=== PATIENT | male | born 1950 | race African-American/Black ===

== ENCOUNTER 2017-10-09 15:50 | Inpatient (IN) ==
[2017-10-09] MEDS ORDERED: SALINE FLUSH 10ml SYRINGE IVF PRN (16:18)
--- NOTE | 2017-10-09 16:22 | Emergency Department Report ---
SOB HPI - General Chief Complaint: Shortness of Breath/Dyspnea Stated Complaint: congestion,difficulty breathing Time Seen by Provider: 10/09/17 16:22 Source: patient Mode of arrival: ambulatory Limitations: no limitations - History of Present Illness Patient presents to the ED with complaints of dyspnea and cough for almost 3 weeks. He has seen his PCP, Dr Perez twice and is on his second round of antibiotics; states was on first antibiotic for only a few days and didn't think it was helping so he saw him again on 10/06 and started augmentin. States he does not believe he has had any xrays. Patient has significant PMH of CAD, HTN, COPD, CHF, NIIDM and cancer including hx of CABG x5 in 2007. P Patient takes plavix 75 mg daily. Reports also flew to [facility] about 3 weeks ago about the same time the sx started. Patient has had a left BKA in 2007 after his leg got infected after his bypass surgery Upon arrival,patient has very decreased lung sounds bilaterally. Room air sats are 88-92%. Denies specific chest pain unless he is coughing; Denies hemoptysis. D dimer obtained and is elevated at 522. CT scan done indicating bilateral LL infiltrates, with right pleural effusion and a right lower lobe focal PE. Patient also has sleep apnea and uses bipap at night. His PCP is Dr Perez and groutman is Dr Lindsey in [place]; Last stress thallium was in April and patient was told to follow up in 6 months. - Related Data Home Medications Medication Instructions Recorded Confirmed Digoxin 125 mcg PO DAILY #0 10/09/08 10/09/17 Colchicine 0.6 mg PO DAILY #0 01/27/16 10/09/17 Rosuvastatin Calcium 40 mg PO HS #0 01/27/16 10/09/17 Albuterol HFA Inhaler [Ventolin 1 puff INH PRN 10/09/17 10/09/17 Hfa 90 mcg/actuation] Amox/Clav [Augmentin 875/125] 1 tab PO BID 10/09/17 10/09/17 Baclofen [Lioresal] 10 mg PO HS PRN 10/09/17 10/09/17 Clopidogrel Bisulfate [Clopidogrel] 75 mg PO DAILY 10/09/17 10/09/17 Furosemide [Lasix] 40 mg PO WL 10/09/17 10/09/17 Furosemide [Lasix] 60 mg PO WB 10/09/17 10/09/17 Gabapentin [Neurontin] 400 mg PO TID 10/09/17 10/09/17 GlipiZIDE [Glucotrol] 5 mg PO BID 10/09/17 10/09/17 Latanoprost 1 drop OP HS 10/09/17 10/09/17 Metformin [Glucophage] 1,000 mg PO 1900 10/09/17 10/09/17 Metformin [Glucophage] 1,500 mg PO WB 10/09/17 10/09/17 Timolol [Betimol] 1 drop OP HS 10/09/17 10/09/17 Umeclidinium Brm/Vilanterol Tr 1 each IH DAILY 10/09/17 10/09/17 [Anoro Ellipta 62.5-25 Mcg INH] Allergies Allergy/AdvReac Type Severity Reaction Status Date / Time allopurinol Allergy Unknown Verified 10/09/17 16:16 hydrocodone Allergy Unknown Verified 10/09/17 16:16 ibuprofen Allergy Unknown Verified 10/09/17 16:16 atorvastatin calcium Allergy Severe MARKED Uncoded 08/07/12 16:07 INCREASE IN MUSCLE ENZYMES fexofenadine HCl Allergy Unknown Uncoded 08/07/12 16:07 Course - Consultations Consultation #1: Dr Urbina Time: 19:03 (will admit ) Vital Signs Temperature 98.2 F 10/09/17 16:00 Pulse Rate 105 H 10/09/17 16:00 Respiratory Rate 26 H 10/09/17 16:00 Blood Pressure 169/77 H 10/09/17 16:00 Pulse Oximetry 91 10/09/17 16:00 Temperature 98.2 F 10/09/17 16:00 Pulse Rate 105 H 10/09/17 16:00 Respiratory Rate 26 H 10/09/17 16:00 Blood Pressure 169/77 H 10/09/17 16:00 Pulse Oximetry 91 10/09/17 16:00 Shortness of Breath/Dyspnea - Lab Data Result diagrams: 10/09/17 16:29 10/09/17 16:29 Disposition Clinical Impression: Pulmonary embolism Qualifiers: Pulmonary embolism type: other Chronicity: acute Acute cor pulmonale presence: without acute cor pulmonale Qualified Code(s): I26.99 - Other pulmonary embolism without acute cor pulmonale Pneumonia Qualifiers: Pneumonia type: due to unspecified organism Laterality: bilateral Lung location : lower lobe of lung Qualified Code(s): J18.1 - Lobar pneumonia, unspecified organism Disposition: 02 [place] [facility] Condition: Stable Prescriptions: No Action Timolol [Betimol] 1 drop OP HS GlipiZIDE [Glucotrol] 5 mg PO BID Umeclidinium Brm/Vilanterol Tr [Anoro Ellipta 62.5-25 Mcg INH] 1 each IH DAILY Baclofen [Lioresal] 10 mg PO HS PRN PRN Reason: Muscle Spasm Amox/Clav [Augmentin 875/125] 1 tab PO BID Albuterol HFA Inhaler [Ventolin Hfa 90 mcg/actuation] 1 puff INH PRN Clopidogrel Bisulfate [Clopidogrel] 75 mg PO DAILY Furosemide [Lasix] 40 mg PO WL Metformin [Glucophage] 1,000 mg PO 1900 Latanoprost 1 drop OP HS Metformin [Glucophage] 1,500 mg PO WB Furosemide [Lasix] 60 mg PO WB Digoxin 125 mcg PO DAILY #0 Colchicine 0.6 mg PO DAILY #0 Rosuvastatin Calcium 40 mg PO HS #0 Gabapentin [Neurontin] 400 mg PO TID Referrals: Sharmila Perez MD [Primary Care Provider] - - Seen By: midlevel
[2017-10-09] MEDS ORDERED: ALBUTEROL/IPRATROPIUM 2.5mg-0.5mg/3ml NEB AEROSOL ONE (17:14)
[2017-10-09] MEDS ORDERED: NS 1,000 ML IV ONE (17:29)
[2017-10-09] MEDS ORDERED: SALINE FLUSH 10ml SYRINGE ONE (17:39)
[2017-10-09] MEDS ORDERED: IOHEXOL 350mg/ml 75ml INJECTION ONE (17:39)
[2017-10-09] MEDS ORDERED: ONDANSETRON 4 MG/2 ML INJECTION IVP PRN (19:21)
[2017-10-09] MEDS ORDERED: SENNA + DOCUSATE TABLET PO PRN (19:21)
[2017-10-09] MEDS ORDERED: MORPHINE SULFATE 2mg INJECTION IVP PRN (19:21)
[2017-10-09] MEDS ORDERED: HYDROCODONE/APAP 5mg/325mg TABLET PO PRN (19:21)
[2017-10-09] MEDS ORDERED: ACETAMINOPHEN 325 MG TABLET PO PRN (19:21)
[2017-10-09] MEDS: LEVOFLOXACIN PB 750 MG/150 ML BAG IV SCH (19:21)
[2017-10-09 20:39] VITALS: BMI 35.6
[2017-10-09] MEDS ORDERED: LEVOFLOXACIN PB 750 MG/150 ML BAG IV SCH (20:44)
[2017-10-09] MEDS ORDERED: ROSUVASTATIN CALCIUM 40 MG PO SCH (21:00)
--- NOTE | 2017-10-09 22:07 | History & Physical Report ---
History of Present Illness Date: 10/09/17 Chief complaint: SOB HPI: The pt started developing SOB , cough, chills, fevers, SAVAGE, body aches about 3 weeks ago after coming home from an [place] [facility] to [facility] with 50 other vets older than him. He went to his PCP and was started on an abx , didn' t feel better and changed abx after 2 days. He developed what he describes as coughing up white frothy sputum about a week ago. He has had increasing dyspnea but no hemotpysis. Review of Systems - Constitutional Constitutional: Present: chills, daytime sleepiness, fatigue, headache(s), weakness - Cardiovascular Cardiovascular: Present: edema. Absent: chest pain, orthopnea Vascular: Present: pedal edema - Respiratory Respiratory: Present: cough, dyspnea, dyspnea on exertion, chest congestion. Absent: hemoptysis - Gastrointestinal Gastrointestinal: Absent: diarrhea, dyspepsia, early satiety, hematemesis Past Medical History Medical History Updates: CABG 2007 5 vessel,. HTN, COPD, DM, Family History: No Significant Family History - Social History Smoking status: Heavy tobacco smoker Alcohol intake frequency: does not drink Medications Home Medications Medication Instructions Recorded Confirmed Type Digoxin 125 mcg PO DAILY #0 10/09/08 10/09/17 History Colchicine 0.6 mg PO DAILY #0 01/27/16 10/09/17 History Rosuvastatin Calcium 40 mg PO HS #0 01/27/16 10/09/17 History Albuterol HFA Inhaler [Ventolin 1 puff INH PRN 10/09/17 10/09/17 History Hfa 90 mcg/actuation] Amox/Clav [Augmentin 875/125] 1 tab PO BID 10/09/17 10/09/17 History Baclofen [Lioresal] 10 mg PO HS PRN 10/09/17 10/09/17 History Clopidogrel Bisulfate [Clopidogrel] 75 mg PO DAILY 10/09/17 10/09/17 History Furosemide [Lasix] 40 mg PO WL 10/09/17 10/09/17 History Furosemide [Lasix] 60 mg PO WB 10/09/17 10/09/17 History Gabapentin [Neurontin] 400 mg PO TID 10/09/17 10/09/17 History GlipiZIDE [Glucotrol] 5 mg PO BID 10/09/17 10/09/17 History Latanoprost 1 drop OP HS 10/09/17 10/09/17 History Metformin [Glucophage] 1,000 mg PO 1900 10/09/17 10/09/17 History Metformin [Glucophage] 1,500 mg PO WB 10/09/17 10/09/17 History Timolol [Betimol] 1 drop OP HS 10/09/17 10/09/17 History Umeclidinium Brm/Vilanterol Tr 1 each IH DAILY 10/09/17 10/09/17 History [Anoro Ellipta 62.5-25 Mcg INH] Allergies Allergy/AdvReac Type Severity Reaction Status Date / Time allopurinol Allergy Unknown Verified 10/09/17 16:16 hydrocodone Allergy Unknown Verified 10/09/17 16:16 ibuprofen Allergy Unknown Verified 10/09/17 16:16 atorvastatin calcium Allergy Severe MARKED Uncoded 08/07/12 16:07 INCREASE IN MUSCLE ENZYMES fexofenadine HCl Allergy Unknown Uncoded 08/07/12 16:07 Exam Vital Signs: Temperature 99.3 F 10/09/17 20:17 Pulse Rate 102 H 10/09/17 21:33 Respiratory Rate 20 10/09/17 21:33 Blood Pressure 160/95 H 10/09/17 20:17 Pulse Oximetry 96 10/09/17 21:33 Height/Weight/BMI: Height 1.78 m Weight 112.8 kg Body Mass Index 35.6 - Constitutional Present: no acute distress - Routine HEENT Exam Head: Present: normocephalic - Routine Neck Exam Present: supple - Routine Respiratory Exam Present: rales, rhonchi. Absent: accessory muscle use, respiratory distress - Routine Cardiovascular Exam Present: RRR, murmur - Routine Abdominal Exam Present: soft, normoactive bowel sounds, non distended, non tender - Routine Extremities Exam Comments: mild edema in RLE, AKA in left leg - Routine Skin Exam Present: intact - Routine Neurological Exam Present: alert, oriented X3 Results - Labs CBC & Chem 7: 10/09/17 16:29 10/09/17 16:29 Assessment and Plan (1) COPD (chronic obstructive pulmonary disease) Current visit: Yes Status: Acute (2) Pleural effusion associated with pulmonary infection Current visit: Yes Status: Acute (3) CAD (coronary artery disease) of artery bypass graft Current visit: Yes Status: Acute (4) Pneumonia Current visit: Yes Status: Acute (5) Pulmonary embolism Current visit: Yes Status: Acute Assessment and Plan: will start the pt on lovenox 1 mg/ kg BID, monitor on telemertry, empiric abx, repeat labs in am,restart home meds. supplemental oxygen. - Physician Narrative Narrative: Date: 10/09/17 Time: 2203 Hospital Course Summary Disclaimer: The visit summary below is not to be considered part of the above Progress Note.
[2017-10-09] MEDS: ENOXAPARIN 120 MG/0.8 ML INJECTION SQ SCH (22:30)
[2017-10-09] MEDS: ROSUVASTATIN 20 MG TABLET PO SCH (22:32)
[2017-10-09] MEDS: GABAPENTIN 400 MG CAPSULE PO SCH (22:32)
[2017-10-10] MEDS ORDERED: ALBUTEROL 2.5mg/3ml (0.083%) NEB AEROSOL PRN (06:12)
[2017-10-10] MEDS ORDERED: COLCHICINE 0.6 MG TABLET PO SCH (09:00)
[2017-10-10] MEDS ORDERED: CLOPIDOGREL 75 MG TABLET PO SCH (09:00)
[2017-10-10] MEDS: ENOXAPARIN 120 MG/0.8 ML INJECTION SQ SCH (09:35)
[2017-10-10] MEDS: DIGOXIN 125 MCG TABLET PO SCH (09:35)
[2017-10-10] MEDS: FUROSEMIDE 40 MG TABLET PO SCH ×2 (09:35→11:54)
[2017-10-10] MEDS: GABAPENTIN 400 MG CAPSULE PO SCH ×3 (09:35→20:07)
[2017-10-10] MEDS ORDERED: BACLOFEN 10 MG TABLET PO PRN (13:05)
[2017-10-10] MEDS ORDERED: INSULIN ASPART 100unit/ml INJECTION SQ PRN (13:06)
--- NOTE | 2017-10-10 15:25 | History & Physical Report ---
History of Present Illness Date: 10/10/17 Chief complaint: dyspnea HPI: Mr. Romano is a 67-year-old male with multiple chronic medical problems including COPD. He flew to [facility] approximate 3 weeks ago on an [place] [facility] and shortly after return home developed dyspnea with cough, fever, chills , myalgias, and headache. He was treated with an oral antibiotic which he discontinued after several days because he didn't feel it was improving symptoms. He saw Dr. Perez again about a week ago and was converted to Augmentin started on 10/06. Symptoms were stable for 2 days but he reports that the evening of 10/08 "the bottom fell out of everything". Reports significant worsening in dyspnea with marked exertional dyspnea, pain with breathing, persistent cough productive of frothy sputum but no recurrent fever or chills. He denies swelling in his right leg or pain in his leg or thighs. He denies hemoptysis. He was referred to the emergency room by Pranay SPENCER. He was mildly hypoxic in the emergency room requiring initiation of one to 2 L supplemental oxygen. D-dimer was modestly elevated and CTA of the chest revealed right lower lobe PE and bilateral lower lobe infiltrates which may be compressive atelectasis. Levaquin was initiated in conjunction with therapeutic Lovenox and he was admitted for management. Overnight he had 2 episodes of wide complex tachycardia identified on telemetry consistent with NSVT. Patient denies chest pain or palpitations. Review of Systems All systems PM: 10-point ROS was reviewed, no additional remarkable complaints except (as noted in history of present illness, right shoulder pain due to rotator cuff injury; he denies history of blood loss.) Past Medical History Medical History: Medical History (Last Updated 10/10/17 @ 15:28 by Yoly Roberson MD) Bladder cancer Treated with intravesicular chemotherapy CAD (coronary artery disease) COPD (chronic obstructive pulmonary disease) Glaucoma HTN (hypertension) History of left below knee amputation 2008; postoperative infection left leg after CABG Hyperlipemia RONDA (obstructive sleep apnea) PVD (peripheral vascular disease) Bilateral lower extremity bypasses Surgical History: CABG 2007 5 vessel-February 2008, left BKA due to post CABG leg infection-June 2008, arterial bypasses bilateral lower extremities, cystoscopies with intravesicular chemotherapy for bladder cancer Family History: Family History (Last Updated 10/10/17 @ 15:17 by Yoly Roberson MD) Sister Cervical cancer Mother Coronary artery disease Diabetes Family History: As Above - Social History Smoking status: Former smoker (heavy use in the past; discontinued 15 years ago) Substance use type: does not use Alcohol intake frequency: does not drink Current residence: Apartment/Private Home Social history: PCP-Dr. Leroy Perez Cardiology-Dr. Lida Lindsey Alternate [id number] would like his son to be his DPOA but has not actually completed paperwork. CODE STATUS full Medications Home Medications Medication Instructions Recorded Confirmed Type Digoxin 125 mcg PO DAILY #0 10/09/08 10/09/17 History Colchicine 0.6 mg PO DAILY #0 01/27/16 10/09/17 History Rosuvastatin Calcium 40 mg PO HS #0 01/27/16 10/09/17 History Albuterol HFA Inhaler [Ventolin 1 puff INH PRN 10/09/17 10/09/17 History Hfa 90 mcg/actuation] Amox/Clav [Augmentin 875/125] 1 tab PO BID 10/09/17 10/09/17 History Baclofen [Lioresal] 10 mg PO HS PRN 10/09/17 10/09/17 History Clopidogrel Bisulfate [Clopidogrel] 75 mg PO DAILY 10/09/17 10/09/17 History Furosemide [Lasix] 40 mg PO WL 10/09/17 10/09/17 History Furosemide [Lasix] 60 mg PO WB 10/09/17 10/09/17 History Gabapentin [Neurontin] 400 mg PO TID 10/09/17 10/09/17 History GlipiZIDE [Glucotrol] 5 mg PO BID 10/09/17 10/09/17 History Latanoprost 1 drop OP HS 10/09/17 10/09/17 History Metformin [Glucophage] 1,000 mg PO 1900 10/09/17 10/09/17 History Metformin [Glucophage] 1,500 mg PO WB 10/09/17 10/09/17 History Timolol [Betimol] 1 drop OP HS 10/09/17 10/09/17 History Umeclidinium Brm/Vilanterol Tr 1 each IH DAILY 10/09/17 10/09/17 History [Anoro Ellipta 62.5-25 Mcg INH] Allergies Allergy/AdvReac Type Severity Reaction Status Date / Time allopurinol Allergy Unknown Verified 10/09/17 16:16 hydrocodone Allergy Unknown Verified 10/09/17 16:16 ibuprofen Allergy Unknown Verified 10/09/17 16:16 atorvastatin calcium Allergy Severe MARKED Uncoded 08/07/12 16:07 INCREASE IN MUSCLE ENZYMES fexofenadine HCl Allergy Unknown Uncoded 08/07/12 16:07 Exam Vital Signs: Temperature 98.2 F 10/10/17 11:21 Pulse Rate 100 10/10/17 11:21 Respiratory Rate 16 10/10/17 11:21 Blood Pressure 140/81 H 10/10/17 11:21 Pulse Oximetry 95 - 2L 10/10/17 11:21 EXAM: General-NAD, alert, fluent speech HEENT-PERRL, EOMI without nystagmus, conjugate gaze, conjunctiva clear, sclera anicteric, facial structures symmetric, oropharynx clear, neck supple and without adenopathy Lungs-respirations nonlabored, good airflow, faint inspiratory/expiratory crackles right upper anterior field; no extra sounds at the bases posteriorly Cardiac-regular rhythm, S1-S2 Abd-obese, soft, nontender, bowel sounds present although diminished Ext-right lower extremity without edema; left AKA-prosthesis on Skin-no generalized rashes, no visualized wounds Neuro-cranial nerves 3-12 intact, sensation intact to light touch 4 extremities and sensation present right foot; normal motor tone/power Psych-calm, cooperative, pleasant Telemetry Rhythm: Sinus Rhythm (with short runs of wide complex tachycardia consistent with NSVT) Height/Weight/BMI: Height 1.78 m Weight 107.8 kg Body Mass Index 35.6 Results - Labs CBC & Chem 7: 10/10/17 04:08 10/10/17 04:08 Labs: D-dimer 522 A1C 6.4 CRP 154 Lactic acid 1.0-0.7, procalcitonin nondetectable Magnesium 2.2 - ECG Data Tracing #1 I reviewed this ECG and interpreted as documented below: (sinus tachycardia with rate partially 138, no acute changes, probable old inferior DC and possible old anterior DC) - Imaging and Cardiology CT scan - chest Status: image reviewed by me (small right pleural effusion, bibasilar infiltrates/atelectasis, right lower PE; possible gallstone) Assessment and Plan (1) Pulmonary embolism Current visit: Yes Status: Acute (2) Pneumonia Current visit: Yes Status: Acute Assessment and Plan: Impression: Pulmonary embolism Pneumonia Hypoxia Pleural effusion Coronary artery disease Wide-complex tachycardia Peripheral vascular disease COPD Diabetes mellitus-A1c 6.4 Hyperlipidemia s/p L-BKA RONDA Plan: Lovenox initiated overnight for pulmonary embolism. Options for oral anticoagulates discussed with patient and he would prefer NOAC provided insurance coverage is available. Clarifying coverage with his pharmacy but anticipate converting to Xarelto or Eliquis. Optimally will obtain echocardiogram to evaluate PA pressures and reassess LV function given wide-complex tachycardia. Unable to obtain study until 10/12. Add low-dose beta renny for NSVT; continue telemetry. Continue Levaquin. Titrate oxygen as status permits. Resume metformin for diabetes; monitor blood sugars fasting and 2 hours after meals. RT consultation. DVT Prophylaxis: Lovenox Resuscitation Status: Full Code - Physician Narrative Narrative: Date: 10/10/17 Time: 1518 Hospital Course Summary Disclaimer: The visit summary below is not to be considered part of the above Progress Note. Hospital Course: 10/10/17 Admitted overnight with increasing dyspnea/exertional dyspnea after 3 week history respiratory symptoms failing outpatient antibiotics. CTA demonstrated pulmonary emboli the right lower lung in addition to bilateral infiltrates. Telemetry overnight with runs of NSVT. Lovenox initiated overnight for pulmonary embolism. Options for oral anticoagulates discussed with patient and he would prefer NOAC provided insurance coverage is available. Clarifying coverage with his pharmacy but anticipate converting to Xarelto or Eliquis. Optimally will obtain echocardiogram to evaluate PA pressures and reassess LV function given wide-complex tachycardia. Unable to obtain study until 10/12. Add low-dose beta renny for NSVT; continue telemetry. Continue Levaquin. Titrate oxygen as status permits. Resume metformin for diabetes; monitor blood sugars fasting and 2 hours after meals. RT consultation.
[2017-10-10] MEDS: CARVEDILOL 3.125 MG TABLET PO SCH (18:31)
[2017-10-10] MEDS: RIVAROXABAN 15 MG TABLET PO SCH (18:31)
[2017-10-10] MEDS: ALBUTEROL/IPRATROPIUM 2.5mg-0.5mg/3ml NEB AEROSOL SCH (19:18)
[2017-10-10] MEDS: COLCHICINE 0.6 MG TABLET PO SCH (20:07)
[2017-10-10] MEDS: METFORMIN 500 MG TABLET PO SCH (20:07)
[2017-10-10] MEDS: ROSUVASTATIN 20 MG TABLET PO SCH (20:07)
[2017-10-10] MEDS: LATANOPROST 0.005% EYE DROPS 2.5ml OP SCH (20:08)
[2017-10-10] MEDS: CLOPIDOGREL 75 MG TABLET PO SCH (20:08)
[2017-10-10] MEDS: LEVOFLOXACIN PB 750 MG/150 ML BAG IV SCH (20:08)
[2017-10-10] MEDS ORDERED: ROSUVASTATIN 20 MG TABLET PO SCH (21:00)
[2017-10-11] MEDS: ALBUTEROL/IPRATROPIUM 2.5mg-0.5mg/3ml NEB AEROSOL SCH ×4 (06:39→19:33)
[2017-10-11] MEDS: RIVAROXABAN 15 MG TABLET PO SCH ×2 (09:02→18:09)
[2017-10-11] MEDS: CARVEDILOL 3.125 MG TABLET PO SCH ×2 (09:02→18:09)
[2017-10-11] MEDS: GABAPENTIN 400 MG CAPSULE PO SCH ×3 (09:02→20:04)
[2017-10-11] MEDS: DIGOXIN 125 MCG TABLET PO SCH (09:02)
[2017-10-11] MEDS: METFORMIN 500 MG TABLET PO SCH ×2 (09:02→18:09)
[2017-10-11] MEDS: FUROSEMIDE 40 MG TABLET PO SCH ×2 (09:02→11:50)
--- NOTE | 2017-10-11 11:15 | CT Scan Report ---
Indication: DYSPNEA, ELEVATED D DIMER PROCEDURE: CT angio pulm emboli: Encounter: Initial Comparison: CTA chest dated March 27, 2008 Technique: Axial CT pulmonary angiographic phase images were performed through the chest after the administration of intravenous contrast. Coronal and Sagittal MIP reconstructed images were created and reviewed. Automated Exposure Control and Iterative Reconstruction dose reducing techniques were utilized. Contrast: Omnipaque 350 73 mL Findings: Pulmonary arteries: Exam is diagnostic to the subsegmental pulmonary arterial level. Questionable filling defect in a right lower lobe branch mentioned on the preliminary report. There is motion artifact limiting evaluation of this region. Other findings: Small right effusion. Bilateral lower lobe airspace consolidation with linear atelectasis in the right middle lobe. Subpleural 8 mm lingular nodule on image #32. Additional 4 to 5 mm left lower lobe nodule on image #41. Intrapulmonary lymph node along the right major fissure. Subpleural right middle lobe 5 mm nodule on image #26. These nodules appear stable since 2007 consistent with a benign postinfectious or postinflammatory etiology. No axillary or mediastinal adenopathy. Heart is mildly enlarged. No pericardial effusion. Prior CABG. The upper abdomen shows no acute findings. Impression: Possible right lower lobe pulmonary embolus. Basilar atelectasis, pneumonia or aspiration. There is a preliminary report by [employer]. .
--- NOTE | 2017-10-11 14:38 | Progress Note ---
- Date 10/11/17 Subjective: Mr. Romano reports that he is less dyspneic than in recent days and reports minimal cough. Cough is productive of clear sputum which had a zofia of blood in it on one occasion but he otherwise denies bleeding. He denied chest pain or palpitations; has had no nausea, vomiting, fever, or chills. He denies lightheadedness and reports his appetite is good. Objective Vital signs: Temperature 98.2 F 10/11/17 11:23 Pulse Rate 96 10/11/17 11:23 Respiratory Rate 18 10/11/17 11:23 Blood Pressure 121/68 10/11/17 11:23 Pulse Oximetry 92-0.5 L 10/11/17 11:23 NAD, alert, fluent speech Conjunctiva clear, sclera anicteric, conjugate gaze Respirations nonlabored, good airflow, breath sounds clear Regular rhythm, S1-S2, low-grade tachycardia Abdomen soft, obese, nontender, bowel sounds present Right extremity without edema, calf nontender; left BKA Rhythm: Normal Sinus Rhythm, Sinus Tachycardia (occasional PVCs) Height/Weight/BMI: Height 1.78 m Weight 107.2 kg Body Mass Index 35.6 Results - Labs CBC & Chem 7: 10/11/17 04:40 10/11/17 04:40 Labs: Troponin 0.015 Magnesium 2.2 Assessment and Plan (1) Pulmonary embolism Current visit: Yes Status: Acute (2) Pneumonia Current visit: Yes Status: Acute Assessment and Plan: Impression: Pulmonary embolism Pneumonia Hypoxia Pleural effusion Coronary artery disease Wide-complex tachycardia/NSVT Peripheral vascular disease COPD Diabetes mellitus-A1c 6.4 Hyperlipidemia s/p L-BKA RONDA Plan: Converted from Lovenox to Xarelto yesterday after it was learned that his insurance covers Xarelto adequately. Respiratory symptoms improving but continues to require oxygen and have low- grade tachycardia. Echocardiogram tomorrow, if Dr. Lindsey is available will ask that he read echo and review telemetry strip with nonsustained VT. In reviewing telemetry strips from yesterday there was only one episode of NSVT although 2 copies appear in the chart. 14 beats of monomorphic VT at rate of approximately 150. No recurrence last night. Low-dose carvedilol initiated yesterday Continue Levaquin for possible pneumonia-no fever/leukocytosis. Day 3 Levaquin of planned 5. Blood sugars adequately controlled on metformin. On Duo-neb 4 times a day in place of Anoro while hospitalized. DVT Prophylaxis: Xarelto Resuscitation Status: Full Code - Physician Narrative Narrative: Date: 10/11/17 Time: 1435 Hospital Course Summary Disclaimer: The visit summary below is not to be considered part of the above Progress Note. Hospital Course: 10/10/17 Admitted overnight with increasing dyspnea/exertional dyspnea after 3 week history respiratory symptoms failing outpatient antibiotics. CTA demonstrated pulmonary emboli the right lower lung in addition to bilateral infiltrates. Telemetry overnight with a run of NSVT. Lovenox initiated overnight for pulmonary embolism. Options for oral anticoagulates discussed with patient and he would prefer NOAC provided insurance coverage is available. Clarifying coverage with his pharmacy but anticipate converting to Xarelto or Eliquis. Optimally will obtain echocardiogram to evaluate PA pressures and reassess LV function given wide-complex tachycardia. Unable to obtain study until 10/12. Add low-dose beta renny for NSVT; continue telemetry. Continue Levaquin. Titrate oxygen as status permits. Resume metformin for diabetes; monitor blood sugars fasting and 2 hours after meals. RT consultation. 10/11/17 Converted from Lovenox to Xarelto yesterday after it was learned that his insurance covers Xarelto adequately. Respiratory symptoms improving but continues to require oxygen and have low- grade tachycardia. Echocardiogram tomorrow, if Dr. Lindsey is available will ask that he read echo and review telemetry strip with nonsustained VT. In reviewing telemetry strips there was only one episode of NSVT although 2 copies appear in the chart. 14 beats of monomorphic VT at rate of approximately 150. No recurrence last night. Low-dose carvedilol initiated yesterday Continue Levaquin for possible pneumonia-no fever/leukocytosis. Day 3 Levaquin of planned 5. Blood sugars adequately controlled on metformin. On Duo-neb 4 times a day in place of Anoro while hospitalized.
[2017-10-11] MEDS: TIMOLOL 0.5% EYE DROPS 5 ML EACH EYE SCH ×2 (15:37→20:21)
[2017-10-11] MEDS: LATANOPROST 0.005% EYE DROPS 2.5ml OP SCH (20:03)
[2017-10-11] MEDS: LEVOFLOXACIN PB 750 MG/150 ML BAG IV SCH (20:03)
[2017-10-11] MEDS: CLOPIDOGREL 75 MG TABLET PO SCH (20:04)
[2017-10-11] MEDS: ROSUVASTATIN 20 MG TABLET PO SCH (20:04)
[2017-10-11] MEDS: COLCHICINE 0.6 MG TABLET PO SCH (20:04)
[2017-10-12] MEDS: ALBUTEROL/IPRATROPIUM 2.5mg-0.5mg/3ml NEB AEROSOL SCH ×3 (07:33→15:50)
[2017-10-12] MEDS: GABAPENTIN 400 MG CAPSULE PO SCH ×2 (08:50→14:28)
[2017-10-12] MEDS: RIVAROXABAN 15 MG TABLET PO SCH ×2 (08:50→17:58)
[2017-10-12] MEDS: DIGOXIN 125 MCG TABLET PO SCH (08:50)
[2017-10-12] MEDS: METFORMIN 500 MG TABLET PO SCH ×2 (08:50→18:48)
[2017-10-12] MEDS: FUROSEMIDE 40 MG TABLET PO SCH ×2 (08:51→11:41)
[2017-10-12] MEDS: CARVEDILOL 3.125 MG TABLET PO SCH ×2 (08:51→17:58)
[2017-10-12] MEDS: TIMOLOL 0.5% EYE DROPS 5 ML EACH EYE SCH (09:39)
--- NOTE | 2017-10-12 14:51 | Progress Note ---
- Date 10/12/17 Subjective: Mohsen reports he's feeling well. He denies SOA or exertional SOA. No chest pain or dizziness. He denied having any sx with NSVT. He denies abdominal pain or GI complaints. He is hopeful for discharge home. Objective Vital signs: Temperature 97.8 F 10/12/17 11:53 Pulse Rate 91 10/12/17 11:53 Respiratory Rate 18 10/12/17 11:53 Blood Pressure 148/72 H 10/12/17 11:53 Pulse Oximetry 94 10/12/17 11:53 Rhythm: Normal Sinus Rhythm, Sinus Tachycardia (occasional PVCs) Height/Weight/BMI: Height 1.78 m Weight 106.5 kg Body Mass Index 35.6 - Constitutional Present: no acute distress, well nourished, well developed - Routine HEENT Exam Head: Present: normocephalic Eye: Absent: conjunctival icterus, scleral injection ENT: Present: mucous membranes moist, oropharynx clear - Routine Respiratory Exam Present: CTA bilaterally, wheezes (only noted with cough) - Routine Cardiovascular Exam Present: RRR, S1, S2 - Routine Abdominal Exam Present: soft, normoactive bowel sounds, non distended, non tender - Routine Extremities Exam Present: edema (trace RLE) Comments: Left BKA prosthetic in place - Routine Skin Exam Present: intact, dry, warm - Routine Neurological Exam Present: alert, oriented X3, moving all extremities, normal speech. Absent: facial asymmetry - Routine Psychiatric Exam Present: normal affect, normal thought process, cooperative Results - Labs CBC & Chem 7: 10/11/17 04:40 10/11/17 04:40 Assessment and Plan (1) Pulmonary embolism Current visit: Yes Status: Acute (2) Pneumonia Current visit: Yes Status: Acute Assessment and Plan: Impression: Pulmonary embolism Pneumonia Hypoxia Pleural effusion Coronary artery disease Wide-complex tachycardia/NSVT Peripheral vascular disease COPD Diabetes mellitus-A1c 6.4 Hyperlipidemia s/p L-BKA RONDA Plan: Desaturated to 84% with ambulatory oximetry and required 2L with activity and 1L for recovery. Overnight oximetry not obtained though with hx of COPD suspect he will require approx 1L O2. Nocturnal oximetry may be obtained if outpt setting if Dr. Lindsey feels Mohsen may be dismissed today. Carvedilol was started 10/10/17; pt was asymptomatic with NSVT. Continue Levaquin for possible pneumonia; day 4 of 5. Discharge in near future. Discussed with Dr. Roberson and CM. DVT Prophylaxis: Xarelto Resuscitation Status: Full Code - Physician Narrative Physician: Yoly Roberson MD Narrative: Date: 10/12/17 Time: 2134 I have independently evaluated and examined this patient. I reviewed the chart, the patient's history, and the [employer]/PA's documented findings as above. We discussed and formulated the assessment and plan as above with additions as below: Mr. Romano reports significant improvement in dyspnea and cough. He continues to require low flow oxygen and with ambulation required 2 L supplemental O2 to maintain saturation above 90% after desaturating to 84% after walking short distance. NAD, alert Respirations nonlabored, good airflow, breath sounds clear Regular rhythm, S1-S2 Telemetry strips reviewed-sinus rhythm with rare PVCs; no recurrent nonsustained VT Discussed with Dr. Lindsey-echo with ejection fraction 35-40%, stable compared to prior study; full report pending. PA pressure not commented on. Stable for discharge with supplemental oxygen. Xarelto reviewed with Mr. Romano and he is aware he will remain on twice a day dosing for 2 weeks and then convert to 20 mg tablets once daily. Prescription for 15 mg tablets submitted to [facility] and he is given a written prescription for 20 mg tablets of Xarelto to be filled in 2-1/2 weeks and to be started on 11/08. Hospital Course Summary Disclaimer: The visit summary below is not to be considered part of the above Progress Note. Hospital Course: 10/10/17 Admitted overnight with increasing dyspnea/exertional dyspnea after 3 week history respiratory symptoms failing outpatient antibiotics. CTA demonstrated pulmonary emboli the right lower lung in addition to bilateral infiltrates. Telemetry overnight with a run of NSVT. Lovenox initiated overnight for pulmonary embolism. Options for oral anticoagulates discussed with patient and he would prefer NOAC provided insurance coverage is available. Clarifying coverage with his pharmacy but anticipate converting to Xarelto or Eliquis. Optimally will obtain echocardiogram to evaluate PA pressures and reassess LV function given wide-complex tachycardia. Unable to obtain study until 10/12. Add low-dose beta renny for NSVT; continue telemetry. Continue Levaquin. Titrate oxygen as status permits. RT consultation. Resume metformin for diabetes; monitor blood sugars fasting and 2 hours after meals. 10/11/17 Converted from Lovenox to Xarelto yesterday after it was learned that his insurance covers Xarelto adequately. Respiratory symptoms improving but continues to require oxygen and have low- grade tachycardia. Echocardiogram tomorrow, if Dr. Lindsey is available will ask that he read echo and review telemetry strip with nonsustained VT. In reviewing telemetry strips there was only one episode of NSVT although 2 copies appear in the chart. 14 beats of monomorphic VT at rate of approximately 150. No recurrence last night. Low-dose carvedilol initiated yesterday Continue Levaquin for possible pneumonia-no fever/leukocytosis. Day 3 Levaquin of planned 5. On Duo-neb 4 times a day in place of [facility] while hospitalized. Blood sugars adequately controlled on metformin. 10/12/17 Desaturated to 84% with ambulatory oximetry and required 2L with activity and 1L for recovery. Overnight oximetry not obtained though with hx of COPD suspect he will require approx 1L O2. Nocturnal oximetry may be obtained if outpt setting if Dr. Lindsey feels Mohsen may be dismissed today. Carvedilol was started 10/10/17; pt was asymptomatic with NSVT. Continue Levaquin for possible pneumonia; day 4 of 5.
--- NOTE | 2017-10-12 15:56 | Cardiology Consult Note ---
History of Present Illness Consult date: 10/12/17 Consult reason: congestive heart failure (HFrEF), known to you Chief complaint: Shortness of breath History of present illness: The pt was last seen in the office 08/06/17 for his annual f/u. The pt was noted to have decreased EF at 36%. He was to continue his current meds and f/u in 6mos. Pt was admitted to the hospital for shortness of breath. His DDimer was elevated and CTA revealed PE. The pt was started on Lovenox and transitioned to Xarelto. The pt's breathing status improved. Echo was done today showing EF 35-40%. The pt denies chest pain today. The pt had a run of Non-sustained VTach on 10/10/17 and occas PVCs since that time. The pt denies palpitations, lightheadedness, dizziness. Review of Systems All systems PM: 10-point ROS was reviewed, no additional remarkable complaints except PFSH Patient Stated Medical History Transient Ischemic Attacks ( Yes TIA) Glaucoma Yes Other HEENT Yes: Wears glasses Congestive Heart Failure Yes Hypertension Yes Myocardial Infarction Yes Chronic Obstructive Pulmonary Yes Disease (COPD) Sleep Apnea Yes Diabetes Mellitus Type 2 Yes Hiatal Hernia Yes Hx Benign Prostatic Yes Hyperplasia Other Hematologic Yes: bleeds easily Osteoarthritis Yes Blood Transfusions Yes Depression Yes Post Traumatic Stress Disorder Yes Clinic Medical History (Last Updated 10/10/17 @ 15:28 by Yoly Roberson MD) Bladder cancer (Acute Medical) Treated with intravesicular chemotherapy CAD (coronary artery disease) (Acute Medical) COPD (chronic obstructive pulmonary disease) (Acute Medical) Glaucoma (Acute Medical) HTN (hypertension) (Acute Medical) History of left below knee amputation (Acute Medical) 2008; postoperative infection left leg after CABG Hyperlipemia (Acute Medical) RONDA (obstructive sleep apnea) (Acute Medical) PVD (peripheral vascular disease) (Acute Medical) Bilateral lower extremity bypasses Medical History Updates: CABG 2007 5 vessel-February 2008, left BKA due to post CABG leg infection-June 2008, arterial bypasses bilateral lower extremities, cystoscopies with intravesicular chemotherapy for bladder cancer Surgical History: CABG 2007 5 vessel-February 2008, left BKA due to post CABG leg infection-June 2008, arterial bypasses bilateral lower extremities, cystoscopies with intravesicular chemotherapy for bladder cancer Family History: Family History (Last Updated 10/10/17 @ 15:17 by Yoly Roberson MD) Sister Cervical cancer Mother Coronary artery disease Diabetes MGM and MGF: CHF - Social History Smoking status: Former smoker (heavy use in the past; discontinued 15 years ago) Substance use type: does not use Alcohol intake frequency: does not drink Current residence: Apartment/Private Home Medications Home Medications Medication Instructions Recorded Confirmed Type Digoxin 125 mcg PO DAILY #0 10/09/08 10/09/17 History Colchicine 0.6 mg PO DAILY #0 01/27/16 10/09/17 History Rosuvastatin Calcium 40 mg PO HS #0 01/27/16 10/09/17 History Albuterol HFA Inhaler [Ventolin 1 puff INH PRN 10/09/17 10/09/17 History Hfa 90 mcg/actuation] Amox/Clav [Augmentin 875/125] 1 tab PO BID 10/09/17 10/09/17 History Baclofen [Lioresal] 10 mg PO HS PRN 10/09/17 10/09/17 History Clopidogrel Bisulfate [Clopidogrel] 75 mg PO DAILY 10/09/17 10/09/17 History Furosemide [Lasix] 40 mg PO WL 10/09/17 10/09/17 History Furosemide [Lasix] 60 mg PO WB 10/09/17 10/09/17 History Gabapentin [Neurontin] 400 mg PO TID 10/09/17 10/09/17 History GlipiZIDE [Glucotrol] 5 mg PO BID 10/09/17 10/09/17 History Latanoprost 1 drop OP HS 10/09/17 10/09/17 History Metformin [Glucophage] 1,000 mg PO 1900 10/09/17 10/09/17 History Metformin [Glucophage] 1,500 mg PO WB 10/09/17 10/09/17 History Timolol [Betimol] 1 drop OP HS 10/09/17 10/09/17 History Umeclidinium Brm/Vilanterol Tr 1 each IH DAILY 10/09/17 10/09/17 History [Anoro Ellipta 62.5-25 Mcg INH] Amiodarone [Pacerone] 200 mg PO DAILY #30 tab 10/12/17 Rx Allergies Allergy/AdvReac Type Severity Reaction Status Date / Time allopurinol Allergy Unknown Verified 10/09/17 16:16 hydrocodone Allergy Unknown Verified 10/09/17 16:16 ibuprofen Allergy Unknown Verified 10/09/17 16:16 atorvastatin calcium Allergy Severe MARKED Uncoded 08/07/12 16:07 INCREASE IN MUSCLE ENZYMES fexofenadine HCl Allergy Unknown Uncoded 08/07/12 16:07 Exam Vital signs: Temperature 97.8 F 10/12/17 11:53 Pulse Rate 91 10/12/17 11:53 Respiratory Rate 18 10/12/17 11:53 Blood Pressure 148/72 H 10/12/17 11:53 Pulse Oximetry 94 10/12/17 11:53 - Constitutional no acute distress, well nourished, well developed Comments: sitting up in chair - Routine HEENT Exam Head: Present: normocephalic ENT: Present: mucous membranes moist - Routine Neck Exam Present: JVD (none), carotid bruit (none) - Routine Respiratory Exam Present: decreased breath sounds (L base) Comments: no adventious sounds - Routine Cardiovascular Exam Present: RRR, no murmur, rubs (none) - Routine Abdominal Exam Present: soft, normoactive bowel sounds, non distended, non tender - Routine Extremities Exam Present: edema (1+ Right lower extrm) - Routine Skin Exam Present: intact, dry - Routine Neurological Exam Present: alert, oriented X3, moving all extremities, normal tone, normal speech - Routine Psychiatric Exam Present: normal affect, normal thought process Results 10/11/17 04:40 10/11/17 04:40 Intake and Output 10/12/17 10/12/17 10/12/17 06:59 14:59 22:59 Intake Total 780 / 780 Output Total 500 / 500 250 / 250 Balance -500 / -500 530 / 530 Intake: Oral 780 / 780 Output: Urine 500 / 500 250 / 250 Other: Urine Appearance Clear Clear Urine Color Yellow Yellow Urine Odor Normal Weight 106.5 kg Patient Weight 10/13/17 06:59 Weight 106.5 kg Laboratory Tests 10/09/17 16:29 RBC 4.43 L Hgb 13.2 L Hct 38.8 L Laboratory Tests 10/09/17 16:29 D-Dimer 522 H EKG interpretations - EKG EKG results cardiology: sinus rhythm EKG shows: ventricular tachycardia (non-sustained on October 10, 2017) Assessment and Plan - Assessment and Plan (1) CHF (congestive heart failure) Problem details: HFrEF 36% Current visit: Yes Status: Acute Cont Coreg and diuretics with daily wts. Will repeat Echo in 3mos. (2) CAD (coronary artery disease) of artery bypass graft Current visit: Yes Status: Acute Cont home PLavix (3) Pneumonia Current visit: Yes Status: Acute per primary team (4) Pulmonary embolism Current visit: Yes Status: Acute Cont Xarelto Hospital Course Summary Disclaimer: The visit summary below is not to be considered part of the above Progress Note. Hospital Course: 10/10/17 Admitted overnight with increasing dyspnea/exertional dyspnea after 3 week history respiratory symptoms failing outpatient antibiotics. CTA demonstrated pulmonary emboli the right lower lung in addition to bilateral infiltrates. Telemetry overnight with a run of NSVT. Lovenox initiated overnight for pulmonary embolism. Options for oral anticoagulates discussed with patient and he would prefer NOAC provided insurance coverage is available. Clarifying coverage with his pharmacy but anticipate converting to Xarelto or Eliquis. Optimally will obtain echocardiogram to evaluate PA pressures and reassess LV function given wide-complex tachycardia. Unable to obtain study until 10/12. Add low-dose beta renny for NSVT; continue telemetry. Continue Levaquin. Titrate oxygen as status permits. RT consultation. Resume metformin for diabetes; monitor blood sugars fasting and 2 hours after meals. 10/11/17 Converted from Lovenox to Xarelto yesterday after it was learned that his insurance covers Xarelto adequately. Respiratory symptoms improving but continues to require oxygen and have low- grade tachycardia. Echocardiogram tomorrow, if Dr. Lindsey is available will ask that he read echo and review telemetry strip with nonsustained VT. In reviewing telemetry strips there was only one episode of NSVT although 2 copies appear in the chart. 14 beats of monomorphic VT at rate of approximately 150. No recurrence last night. Low-dose carvedilol initiated yesterday Continue Levaquin for possible pneumonia-no fever/leukocytosis. Day 3 Levaquin of planned 5. On Duo-neb 4 times a day in place of [facility] while hospitalized. Blood sugars adequately controlled on metformin. 10/12/17 Desaturated to 84% with ambulatory oximetry and required 2L with activity and 1L for recovery. Overnight oximetry not obtained though with hx of COPD suspect he will require approx 1L O2. Nocturnal oximetry may be obtained if outpt setting if Dr. Lindsey feels Mohsen may be dismissed today. Carvedilol was started 10/10/17; pt was asymptomatic with NSVT. Continue Levaquin for possible pneumonia; day 4 of 5.
[2017-10-12] MEDS: LEVOFLOXACIN PB 750 MG/150 ML BAG IV SCH (18:48)
[2017-10-12] MEDS ORDERED: LEVOFLOXACIN 750 MG TABLET PO ONE (20:06)
--- NOTE | 2017-10-12 21:48 | Discharge Summary ---
Discharge Information Date of admission: 10/09/17 19:21 Anticipated date of discharge: 10/12/17 Attending Physician: Yoly Roberson MD Primary care physician: Sharmila Perez MD Consults: Consulting Provider: Billy Lindsey Reason For Exam: NSVT Case Management Consult [CONS] Routine Reason For Exam: home oxygen - Discharge Diagnosis (1) Pulmonary embolism Status: Acute (2) Pneumonia Status: Resolved Pulmonary embolism Pneumonia Hypoxia Pleural effusion Coronary artery disease Wide-complex tachycardia/NSVT Peripheral vascular disease COPD Diabetes mellitus-A1c 6.4 Hyperlipidemia s/p L-BKA RONDA - Procedures Procedures: Echocardiogram on 10/12/17-ejection fraction 35-40%, full report pending. Ambulatory oximetry on 10/12/17: Oxygen saturation on room air prior to ambulating 88%, dropped to 84% with ambulation and required 2 L supplemental oxygen to maintain saturation at or above 90%. - Laboratory Labs: On admission (10/09/17) white count 8.2 with unremarkable differential, d-dimer 522, chemistries unremarkable except AST 70, ALT 64. Troponin 0.025-0.0-8-0.015; proBNP 510, digoxin less than 0.4 CRP 154; lactic acid 1.0-0.7, procalcitonin nondetectable 10/11/17 04:40 10/11/17 04:40 - Microbiology Blood cultures 2 negative after 3 days; sputum culture could not be obtained. - Radiology Radiology: CTA of the chest on 10/09/17: Pulmonary arteries: Exam is diagnostic to the subsegmental pulmonary arterial level. Questionable filling defect in a right lower lobe branch mentioned on the preliminary report. There is motion artifact limiting evaluation of this region. Other findings: Small right effusion. Bilateral lower lobe airspace consolidation with linear atelectasis in the right middle lobe. Subpleural 8 mm lingular nodule on image #32. Additional 4 to 5 mm left lower lobe nodule on image #41. Intrapulmonary lymph node along the right major fissure. Subpleural right middle lobe 5 mm nodule on image #26. These nodules appear stable since 2007 consistent with a benign postinfectious or postinflammatory etiology. No axillary or mediastinal adenopathy. Heart is mildly enlarged. No pericardial effusion. Prior CABG. The upper abdomen shows no acute findings. Impression: Possible right lower lobe pulmonary embolus. Basilar atelectasis, pneumonia or aspiration. History of Present Illness HPI: Mr. Romano is a 67-year-old male with multiple chronic medical problems including COPD. He flew to [facility] approximate 3 weeks ago on an [employer] and shortly after return home developed dyspnea with cough, fever, chills , myalgias, and headache. He was treated with an oral antibiotic which he discontinued after several days because he didn't feel it was improving symptoms. He saw Dr. Perez again about a week ago and was converted to Augmentin started on 10/06. Symptoms were stable for 2 days but he reports that the evening of 10/08 "the bottom fell out of everything". Reports significant worsening in dyspnea with marked exertional dyspnea, pain with breathing, persistent cough productive of frothy sputum but no recurrent fever or chills. He denies swelling in his right leg or pain in his leg or thighs. He denies hemoptysis. He was referred to the emergency room by Pranay SPENCER. He was mildly hypoxic in the emergency room requiring initiation of one to 2 L supplemental oxygen. D-dimer was modestly elevated and CTA of the chest revealed right lower lobe PE and bilateral lower lobe infiltrates which may be compressive atelectasis. Levaquin was initiated in conjunction with therapeutic Lovenox and he was admitted for management. Overnight he had 2 episodes of wide complex tachycardia identified on telemetry consistent with NSVT. Patient denies chest pain or palpitations. Objective Vital signs: Temperature 97.2 F 10/12/17 16:00 Pulse Rate 91 10/12/17 18:00 Respiratory Rate 14 10/12/17 16:00 Blood Pressure 142/67 H 10/12/17 16:00 Pulse Oximetry 94 10/12/17 16:00 NAD, alert Respirations nonlabored, good airflow, breath sounds clear Regular rhythm, S1-S2 Rhythm: Normal Sinus Rhythm Height/Weight/BMI: Height 1.78 m Weight 106.5 kg Body Mass Index 35.6 Hospital Course This is a general summary of the patient's hospital course. For more details refer to the complete medical record. Hospital course: 10/10/17 Admitted overnight with increasing dyspnea/exertional dyspnea after 3 week history respiratory symptoms failing outpatient antibiotics. CTA demonstrated pulmonary emboli the right lower lung in addition to bilateral infiltrates. Telemetry overnight with a run of NSVT. Lovenox initiated overnight for pulmonary embolism. Options for oral anticoagulates discussed with patient and he would prefer NOAC provided insurance coverage is available. Clarifying coverage with his pharmacy but anticipate converting to Xarelto or Eliquis. Optimally will obtain echocardiogram to evaluate PA pressures and reassess LV function given wide-complex tachycardia. Unable to obtain study until 10/12. Add low-dose beta renny for NSVT; continue telemetry. Continue Levaquin. Titrate oxygen as status permits. RT consultation. Resume metformin for diabetes; monitor blood sugars fasting and 2 hours after meals. 10/11/17 Converted from Lovenox to Xarelto yesterday after it was learned that his insurance covers Xarelto adequately. Respiratory symptoms improving but continues to require oxygen and have low- grade tachycardia. Echocardiogram tomorrow, if Dr. Lindsey is available will ask that he read echo and review telemetry strip with nonsustained VT. In reviewing telemetry strips there was only one episode of NSVT although 2 copies appear in the chart. 14 beats of monomorphic VT at rate of approximately 150. No recurrence last night. Low-dose carvedilol initiated yesterday Continue Levaquin for possible pneumonia-no fever/leukocytosis. Day 3 Levaquin of planned 5. On Duo-neb 4 times a day in place of [facility] while hospitalized. Blood sugars adequately controlled on metformin. 10/12/17 Doing well today, respiratory symptoms significantly improved. Continues to have mild hypoxia at rest with increased O2 demand with activities. Seen by Dr. Lindsey who is starting patient on amiodarone 200 mg daily and wants to see him back in one week in the [place] office. Ejection fraction 35-40%. No further arrhythmias except occasional PVCs noted on telemetry. Stable for discharge at this time with oxygen while awake; will use CPAP as previously prescribed at night. Received fourth dose of Levaquin prior to discharge, given absence of ongoing symptoms, normal white counts throughout hospitalization, normal procalcitonin, and absence of fever do not believe additional antibiotics are needed at this time. Xarelto dosing discussed with the patient. He is aware he needs to continue 15 mg twice daily through 11/07 and that prescription was sent to [facility]. He was given a written prescription for Xarelto 20 mg once daily to be filled in 2-1/2 weeks and to be initiated on 11/08. Patient is asked to follow-up with Dr. Perez in approximately one week and Dr. Lindsey next Thursday. Time spent with patient: discharge greater than 30 minutes Resuscitation Status: Full Code Discharge Plan - Discharge Disposition Discharge Date: 10/12/17 Disposition: 01 Discharged Home, Self-Care *Condition: Stable Reason For Visit (Visit label in EMR): pneumonia, urinary embolus - Discharge Medications *Discharge Medications: New Amiodarone [Pacerone] 200 mg PO DAILY #30 tab Carvedilol [Coreg] 3.125 mg PO BIDWM #60 tab Rivaroxaban [Xarelto] 15 mg PO BIDWM tab Continue Timolol [Betimol] 1 drop OP HS GlipiZIDE [Glucotrol] 5 mg PO BID Umeclidinium Brm/Vilanterol Tr [Anoro Ellipta 62.5-25 Mcg INH] 1 each IH DAILY Baclofen [Lioresal] 10 mg PO HS PRN PRN Reason: Muscle Spasm Albuterol HFA Inhaler [Ventolin Hfa 90 mcg/actuation] 1 puff INH PRN Clopidogrel Bisulfate [Clopidogrel] 75 mg PO DAILY Furosemide [Lasix] 40 mg PO WL Metformin [Glucophage] 1,000 mg PO 1900 Latanoprost 1 drop OP HS Metformin [Glucophage] 1,500 mg PO WB Furosemide [Lasix] 60 mg PO WB Digoxin 125 mcg PO DAILY #0 Colchicine 0.6 mg PO DAILY #0 Rosuvastatin Calcium 40 mg PO HS #0 Gabapentin [Neurontin] 400 mg PO TID Discontinued Amox/Clav [Augmentin 875/125] 1 tab PO BID - Discharge Packet/Instructions *Diet: Diabetic *Activity: As tolerate *Pain Management/Treatment: Tylenol per package instructions if needed; avoid taking aspirin or ibuprofen or other arthritis medicines while on Xarelto. *Wound Care: Not applicable Additional Instructions: 1. Continue Xarelto 15 mg twice daily through 11/07. You 'll have a couple of extra pills because the prescription was called in on Thursday when I did the hollis check. Starting 11/08 change dose to Xarelto 20 mg once a day-handwritten prescription given to you or you can have Dr. Perez provide you with a new prescription. You will need to continue blood thinner for minimum of 3 months-discuss when to stop taking Xarelto with Dr. Perez and Dr Lindsey. 2. 2 other new medications are carvedilol 3.125 mg twice a day and amiodarone 200 mg once a day. 3. All prescriptions should be available at [facility]. 4. I don't believe additional antibiotics are needed at this time. 5. Wear oxygen 1 L when resting and 2 L when up and moving about. Continue CPAP at night as in the past. *Expected Signs/Symptoms: Shortness of breath with activities, bruising easily, cough *Notify Physician if: Any bleeding which cannot be easily controlled, chest pain , increasing difficulty breathing, passing out *During Business Hours Contact: Dr. Perez or Dr. Lindsey *After Business Hours Contact: Call [facility] at [phone] and ask that the on-call physician be paged for Dr. Perez *Pending Lab/Results: Follow up w/Provider (final blood culture reports pending- negative so far, unlikely to change) - Referrals/Follow Up *Referrals/Follow Up: Sharmila Perez MD [Primary Care Provider] - 1 Week Billy Lindsey MD [Physician] - 1 Week (Next Thursday in [place] office-I believe his office is scheduling) - Patient Handouts Patient Handouts: Pulmonary Embolism (GEN), Pneumonia (GEN) - Dismissal Complete Discharge Instructions are:: Complete Physician Narrative - Narrative Attestation Narrative: Date: 10/12/17 Time: 2143
[2017-10-12 23:22] VITALS: BP 140/62; PULSE 89; RESP 20; TEMP 98.2; O2SAT 97
--- NOTE | 2017-10-14 09:13 | Echocardiogram ---
DATE OF PROCEDURE: 10/12/2017 PROCEDURE: 2-D echocardiogram. INDICATION: Cardiomyopathy, V-tach. COMPLICATION: None. FINDINGS: The rhythm is a regular rhythm. The left ventricle is normal in size. Systolic function is depressed, EF around 35%. The left atrium is enlarged. The right ventricle is normal. There is mild _LVA 3?_. Aortic valve _?* * has no stenosis. There is mild aortic insufficiency. There is mild mitral and tricuspid regurgitation. _Card..?? incompletely applied?__ _Left mean?_ systolic pressure is 33. No intracardiac mass, _concentric?_ There is no pericardial effusion. IMPRESSION 1. LVEF 35-40%. 2. Mild aortic valve insufficiency. MTDD
--- NOTE | 2017-10-16 11:19 | Work/School Release ---
Work/School Release - Date Date: 10/16/17 - Work Release Remain off work/school for:: May return to work today 10/16/17 May resume normal activity on:: 10/16/17
== END 2017-10-12 20:29 | disposition home or self-care (01) | DRG 175 ==
LOC: ED 15:50 → EDHOLD 19:21 → MED 20:05
PROVIDERS: ADMIT Internal Medicine; ATTEND Internal Medicine